=== PATIENT | female | born 1955 | race Caucasian/White ===

== ENCOUNTER 2016-07-20 03:17 | Emergency (ER) | payer OTHER ==
[2016-07-20 03:26] VITALS: BMI 35.5
[2016-07-20 03:30] VITALS: RESP 18; TEMP 98.5
--- NOTE | 2016-07-20 03:36 | ED PDOC ---
Arrival/HPI - General Chief Complaint: Headache Time Seen by Provider: 07/20/16 03:32 Historian: Patient, Family - History of Present Illness Narrative History of Present Illness (Text): 07/20/16 03:36 Aurelia Le is a 61 year old female, whose past medical history includes hypertension and diabetes, who presents to the Emergency department accompanied by relative complaining of headache. Patient states, via relative acting as photographic printer, she has been experiencing a posterior headache, described as throbbing, for the past 5 days. Patient reports she took Motrin at home with minimal relief. Patient denies any dizziness, focal neurological deficits, vision changes, fever, chills, chest pain, shortness of breath, nausea, vomiting , back pain, neck pain, or any other complaints. Time/Duration: < week (5 days) Symptom Onset: Gradual Symptom Course: Unchanged Quality: Throbbing Activities at Onset: Rest, Light Context: Home Past Medical History - Provider Review Nursing Documentation Reviewed: Yes - Reproductive Menopause: Yes - Cardiac Hx Cardiac Disorders: Yes Hx Hypertension: Yes - Pulmonary Hx Respiratory Disorders: No - Neurological Hx Neurological Disorder: No - HEENT Hx HEENT Disorder: No - Renal Hx Renal Disorder: No - Endocrine/Metabolic Hx Endocrine Disorders: Yes Hx Diabetes Mellitus Type 1: Yes - Hematological/Oncological Hx Blood Disorders: No - Integumentary Hx Dermatological Disorder: No - Musculoskeletal/Rheumatological Hx Musculoskeletal Disorders: No - Gastrointestinal Hx Gastrointestinal Disorders: No - Genitourinary/Gynecological Hx Genitourinary Disorders: No - Psychiatric Hx Psychophysiologic Disorder: No Hx Substance Use: No - Anesthesia Hx Anesthesia: No Family/Social History - Physician Review Nursing Documentation Reviewed: Yes Family/Social History: No Known Family HX Smoking Status: Never Smoked Hx Alcohol Use: No Hx Substance Use: No Allergies/Home Meds Allergies/Adverse Reactions: Allergies No Known Allergies Allergy (Verified 03/16/15 17:25) Home Medications: Home Meds Medication Instructions Recorded Confirmed Insulin Aspart, Recombinant 0 units SUBCUT DAILY 02/03/15 07/20/16 [Novolog] MetFORMIN [glucOPHAGE] 1,000 mg PO DAILY 07/20/16 07/20/16 Review of Systems - Physician Review All systems were reviewed & negative as marked: Yes - Review of Systems Constitutional: Normal. absent: Fevers Eyes: Normal ENT: Normal Respiratory: Normal. absent: SOB, Cough Cardiovascular: Normal. absent: Chest Pain Gastrointestinal: Normal. absent: Abdominal Pain, Diarrhea, Nausea, Vomiting Genitourinary Female: Normal. absent: Dysuria, Frequency, Hematuria, Urine Output Changes Musculoskeletal: Normal. absent: Back Pain, Neck Pain Skin: Normal. absent: Rash Neurological: Normal. absent: Headache, Dizziness Endocrine: Normal Hemo/Lymphatic: Normal Psychiatric: Normal Physical Exam Vital Signs Reviewed: Yes Vital Signs Temp Pulse Resp BP Pulse Ox 07/20/16 04:51 91 H 18 154/73 H 98 07/20/16 03:29 98.5 F 76 18 162/96 H 100 Temperature: Afebrile Blood Pressure: Normal Pulse: Regular Respiratory Rate: Normal Appearance: Positive for: Well-Appearing, Non-Toxic, Comfortable Pain Distress: None Mental Status: Positive for: Alert and Oriented X 3 - Systems Exam Head: Present: Atraumatic, Normocephalic Pupils: Present: PERRL Extroacular Muscles: Present: EOMI Conjunctiva: Present: Normal Mouth: Present: Moist Mucous Membranes Neck: Present: Normal Range of Motion Respiratory/Chest: Present: Clear to Auscultation, Good Air Exchange. No: Respiratory Distress, Accessory Muscle Use Cardiovascular: Present: Regular Rate and Rhythm, Normal S1, S2. No: Murmurs Abdomen: Present: Normal Bowel Sounds. No: Tenderness, Distention, Peritoneal Signs Back: Present: Normal Inspection Upper Extremity: Present: Normal Inspection. No: Cyanosis, Edema Lower Extremity: Present: Normal Inspection. No: Edema Neurological: Present: GCS=15, CN II-XII Intact, Speech Normal, Motor Func Grossly Intact, Normal Sensory Function, Normal Cerebellar Funct, Memory Normal Skin: Present: Warm, Dry, Normal Color. No: Rashes Psychiatric: Present: Alert, Oriented x 3, Normal Insight, Normal Concentration Medical Decision Making ED Course and Treatment: 07/20/16 03:36 Impression: 61 year old female complaining of headache x 5 days. Plan: -- CT Head w/o contrast -- Reglan -- Reassess and disposition Prior Visits: Notes and results from previous visits were reviewed. Progress Notes: 07/20/16 04:30 Reviewed radiology, CT Head shows: 1. No acute intracranial abnormality. 2. Incidental/non-acute findings are described above. 07/20/16 04:41 On re-evaluation, the patient feels better and is in no acute distress. I have discussed the results and plan with the patient, who expresses understanding. Patient in agreement with plan to discharged home. Patient is stable for discharge. Patient was instructed to follow up with physician/clinic in 1-2 days or return if symptoms worsen or new concerning symptoms arise. - RAD Interpretation Narrative RAD Interpretations (Text): CT Head shows: Brain: No intracranial hemorrhage. No mass. No definite edema. Ventricles: No hydrocephalus. Bones/joints: No acute fracture. Soft tissues: Unremarkable. Sinuses: RIGHT maxillary retention cyst. Mastoid air cells: Sclerosis of RIGHT mastoid, stable. Orbits: Unremarkable as visualized. IMPRESSION: 1. No acute intracranial abnormality. 2. Incidental/non-acute findings are described above. Radiology Orders: 07/20/16 03:40 HEAD W/O CONTRAST [CT] Stat Disability Benefits Specialist: Radiologist - Medication Orders Current Medication Orders: Discontinued Medications Metoclopramide HCl (Reglan) 10 mg IVP ONCE ONE Stop: 07/20/16 03:41 Last Admin: 07/20/16 03:49 Dose: 10 mg - Scribe Statement The provider has reviewed the documentation as recorded by the Scribe Florence Goode All medical record entries made by the Scribe were at my direction and personally dictated by me. I have reviewed the chart and agree that the record accurately reflects my personal performance of the history, physical exam, medical decision making, and the department course for this patient. I have also personally directed, reviewed, and agree with the discharge instructions and disposition. Disposition/Present on Arrival - Present on Arrival Any Indicators Present on Arrival: No History of DVT/PE: No History of Uncontrolled Diabetes: No Urinary Catheter: No History of Decub. Ulcer: No History Surgical Site Infection Following: None - Disposition Have Diagnosis and Disposition been Completed?: Yes Diagnosis: Headache, migraine Disposition: HOME/ ROUTINE Disposition Time: 04:40 Condition: GOOD Discharge Instructions (ExitCare): Migraine Headache (ED) Print Language: KOREAN Prescriptions: Acetaminophen/Butalbital/Caf [Fioricet] 1 tab PO QID PRN #10 tab PRN Reason: Headache Referrals: Elsie Andres MD [Primary Care Provider] - Follow up with primary
[2016-07-20] MEDS ORDERED: Apap-Butalbital-Caffeine 325-50-40mg Tab PO PRN (04:43)
[2016-07-20 04:51] VITALS: BP 154/73; PULSE 91; O2SAT 98
--- NOTE | 2016-07-20 08:01 | CT ---
PROCEDURE: CT HEAD WITHOUT CONTRAST. HISTORY: higgins COMPARISON: None available. TECHNIQUE: Axial computed tomography images were obtained through the head/brain without intravenous contrast. Radiation dose: Total exam DLP = 725.84 mGy-cm. This CT exam was performed using one or more of the following dose reduction techniques: Automated exposure control, adjustment of the mA and/or kV according to patient size, and/or use of iterative reconstruction technique. Somewhat limited evaluation due to artifact from patient motion. FINDINGS: HEMORRHAGE: No intracranial hemorrhage. BRAIN: No mass effect or edema.No CT evidence of acute territorial infarct. No atrophy or chronic microvascular ischemic changes. VENTRICLES: Unremarkable. No hydrocephalus. CALVARIUM: Unremarkable. PARANASAL SINUSES: Partially visualized, retention cyst or polyp in the right maxillary sinus. MASTOID AIR CELLS: Under pneumatization of the right mastoid air cells. Left mastoid air cells are unremarkable. OTHER FINDINGS: None. IMPRESSION: No CT evidence of acute intracranial hemorrhage or acute territorial infarct. Acute infarction may be CT occult within first 24 hours. If a focal deficit persists, consider followup CT or MRI for further evaluation. Please note that this report is in general agreement with the preliminary report provided by [facility].
== END 2016-07-20 04:53 | disposition home or self-care (01) ==
LOC: ED 03:17
DX: G43.909 Migraine, unspecified, not intractable, without status migrainosus (principal); E10.9 Type 1 diabetes mellitus without complications; I10 Essential (primary) hypertension
CPT/HCPCS: 70450; 96374; 99285; J2765

== ENCOUNTER 2017-01-06 20:07 | Emergency (ER) | payer OTHER ==
[2017-01-06 20:29] VITALS: BMI 32.1
[2017-01-06] MEDS ORDERED: Insulin Reg-MEDIUM-Coverage IV STA (20:55)
[2017-01-06] MEDS ORDERED: Oxycodone/Acetaminophen 5/325 mg Tab PO STA (20:55)
[2017-01-06] MEDS: Sodium Chloride 0.9% 1,000 ML IV STA ×2 (21:01→23:44)
[2017-01-06] MEDS ORDERED: Oxycodone/Acetaminophen 5/325 mg Tab ONE (21:03)
[2017-01-06] MEDS ORDERED: Insulin Regular 1 UNITS/0.01 ML ML ONE (21:04)
[2017-01-06 21:09] LABS: BASO # 0.03 K/mm3 (0.0-2.0); BASO % 0.4 % (0.0-3.0); EOS # 0.1 (0.0-0.7); EOS % 1.4 % (1.5-5.0); GRAN # 5.26 (1.4-6.5); GRAN % 68.9 % (50.0-68.0); HEMATOCRIT 33.6 % (36.0-48.0); LYMPH # 1.8 (1.2-3.4); LYMPH % 24.1 % (22.0-35.0); MEAN CELL VOLUME 88.9 fl (80.0-105.0); MEAN CORPUSCULAR HEMOGLOBIN 30.2 pg (25.0-35.0); MEAN CORPUSCULAR HGB CONC 33.9 g/dl (31.0-37.0); MEAN PLATELET VOLUME 10.1 fl (7.0-11.0); MONO # 0.4 (0.1-0.6); MONO % 5.2 % (1.0-6.0); WHITE BLOOD COUNT 7.6 10^3/ul (4.5-11.0)
[2017-01-06 21:17] LABS: ALB/GLOB RATIO 1.4 (1.1-1.8); ALKALINE PHOSPHATASE 171 U/L (38-126); ALT/SGPT 33 U/L (7-56); AST/SGOT 29 U/L (14-36); BILIRUBIN,TOTAL 0.7 mg/dL (0.2-1.3); BLOOD UREA NITROGEN 14 mg/dL (7-21); CALCIUM 9.5 mg/dL (8.4-10.5); CARBON DIOXIDE 27 mmol/L (21-33); CHLORIDE 102 mmol/L (98-107); GFR AFRICAN-AMERICAN > 60; POTASSIUM 3.9 mmol/L (3.6-5.0); SODIUM 141 mmol/L (132-148); TOTAL PROTEIN 7.4 g/dL (5.8-8.3)
[2017-01-06 21:40] LABS: GLUCOSE,RANDOM 391 mg/dL (70-110)
--- NOTE | 2017-01-06 21:58 | ED PDOC ---
Arrival/HPI <Al Badillo - Last Filed: 01/06/17 22:09> - General Historian: Patient <Katina Tai A - Last Filed: 01/07/17 01:18> - General Chief Complaint: Trauma Time Seen by Provider: 01/06/17 20:31 - History of Present Illness Narrative History of Present Illness (Text): 01/06/17 21:54 62yo female with PMHx of hypertension and Diabetes present with left sided hip pain that radiates to her leg s/p trauma. The daughter by the bedside states patient slipped on something that was on the floor, and fell . States she had no pain s/p the trauma. She was able to ambulate without pain and had no LOC. Left hip pain started few hours afterward. Did not take any medication. Denies hitting her head anywhere. Denies back pain, nausea, vomiting, focal weakness, any other complaint. PT 's FS was greater than 400 in triage. She notes that she did not take her hypoglycemic today. she denies polyuria/phagia/dipsia. (Katina Tai A) Past Medical History - Provider Review Nursing Documentation Reviewed: Yes - Infectious Disease Hx of Infectious Diseases: None - Cardiac Hx Cardiac Disorders: Yes Hx Hypertension: Yes - Pulmonary Hx Respiratory Disorders: No - Neurological Hx Neurological Disorder: No - HEENT Hx HEENT Disorder: No - Renal Hx Renal Disorder: No - Endocrine/Metabolic Hx Endocrine Disorders: Yes Hx Diabetes Mellitus Type 1: Yes - Hematological/Oncological Hx Blood Disorders: No - Integumentary Hx Dermatological Disorder: No - Musculoskeletal/Rheumatological Hx Musculoskeletal Disorders: No - Gastrointestinal Hx Gastrointestinal Disorders: No - Genitourinary/Gynecological Hx Genitourinary Disorders: No - Psychiatric Hx Psychophysiologic Disorder: No Hx Substance Use: No - Anesthesia Hx Anesthesia: No <Katina Tai A - Last Filed: 01/07/17 01:18> Family/Social History - Physician Review Nursing Documentation Reviewed: Yes Family/Social History: Unknown Family HX Smoking Status: Never Smoked Hx Alcohol Use: No Hx Substance Use: No <Katina Tai A - Last Filed: 01/07/17 01:18> Allergies/Home Meds <Al Badillo - Last Filed: 01/06/17 22:09> <Katina Tai A - Last Filed: 01/07/17 01:18> Allergies/Adverse Reactions: Allergies No Known Allergies Allergy (Verified 01/06/17 20:29) Home Medications: Home Meds Medication Instructions Recorded Confirmed Insulin Aspart, Recombinant 0 units SUBCUT DAILY 02/03/15 01/06/17 [Novolog] MetFORMIN [glucOPHAGE] 1,000 mg PO DAILY 07/20/16 01/06/17 Review of Systems - Physician Review All systems were reviewed & negative as marked: Yes - Review of Systems Constitutional: Normal Eyes: Normal ENT: Normal Respiratory: Normal Cardiovascular: Normal Gastrointestinal: Normal Genitourinary Female: Normal Musculoskeletal: Arthralgias (Left hip pain) Skin: Normal Neurological: Normal Endocrine: Normal Hemo/Lymphatic: Normal Psychiatric: Normal <Diru,Happiness A - Last Filed: 01/07/17 01:18> Physical Exam Vital Signs Reviewed: Yes Temperature: Afebrile Blood Pressure: Normal Pulse: Regular Respiratory Rate: Normal Appearance: Positive for: Well-Appearing, Non-Toxic, Comfortable Pain Distress: None Mental Status: Positive for: Alert and Oriented X 3 Finger Stick Blood Glucose: 456 - Systems Exam Head: Present: Atraumatic, Normocephalic Pupils: Present: PERRL Extroacular Muscles: Present: EOMI Conjunctiva: Present: Normal Mouth: Present: Moist Mucous Membranes Neck: Present: Normal Range of Motion Respiratory/Chest: Present: Clear to Auscultation, Good Air Exchange. No: Respiratory Distress, Accessory Muscle Use Cardiovascular: Present: Regular Rate and Rhythm, Normal S1, S2. No: Murmurs Abdomen: Present: Normal Bowel Sounds. No: Tenderness, Distention, Peritoneal Signs Back: Present: Normal Inspection Upper Extremity: Present: Normal Inspection. No: Cyanosis, Edema Lower Extremity: Present: NORMAL PULSES, Tenderness (Anterior/lateral left hip) , Neurovascularly Intact. No: Edema, Normal ROM (Limited on all planes secondary to pain), Swelling, Deformity Neurological: Present: GCS=15, CN II-XII Intact, Speech Normal Skin: Present: Warm, Dry, Normal Color. No: Rashes Psychiatric: Present: Alert, Oriented x 3, Normal Insight, Normal Concentration <Diru,Happiness A - Last Filed: 01/07/17 01:18> Vital Signs Temp Pulse Resp BP Pulse Ox 01/06/17 23:58 157/76 H 01/06/17 23:57 98.2 F 80 18 98 01/06/17 20:31 98.1 F 78 20 151/82 H 99 Medical Decision Making <Al Badillo - Last Filed: 01/06/17 22:09> <Katina Tai - Last Filed: 01/07/17 01:18> ED Course and Treatment: 01/06/17 23:52 PT presented for stated history. She had tenderness on her anterior/lateral left hip. The rest of the leg eas nontender. Her FS was greater than 400 in triage. She was hydrated and insulin given. On re evaluation she complained of persistent pain and hip CT was ordered. However when the nurse was about to send patient for CT, she declined CT. I spoke with the daughter and she states patient wants to go home. Repeat FS was 283 PT was ambulatory in ED with slight limp. She will be DC with Tylenol #3 and Naprosyn. Referred to her PMD/Ortho. Advised TRT ED for any new or worsening symptoms. (Katina Tai) - Lab Interpretations Lab Results: 01/06/17 20:45 01/06/17 20:45 Lab Results 01/06/17 20:45: Sodium 141, Potassium 3.9, Chloride 102, Carbon Dioxide 27, Anion Gap 16, BUN 14, Creatinine 0.5 L, Est GFR ( Amer) > 60, Est GFR ( Non-Af Amer) > 60, Random Glucose 391 H* D, Calcium 9.5, Total Bilirubin 0.7, AST 29, ALT 33, Alkaline Phosphatase 171 H, Total Protein 7.4, Albumin 4.3, Globulin 3.1, Albumin/Globulin Ratio 1.4 01/06/17 20:45: WBC 7.6, RBC 3.78, Hgb 11.4 L, Hct 33.6 L, MCV 88.9, MCH 30.2, MCHC 33.9, RDW 13.0, Plt Count 224, MPV 10.1, Gran % 68.9 H, Lymph % (Auto) 24.1 , [place] % (Auto) 5.2, Eos % (Auto) 1.4 L, Baso % (Auto) 0.4, Gran # 5.26, Lymph # 1.8, [place] # 0.4, Eos # 0.1, Baso # 0.03 - RAD Interpretation Radiology Orders: 01/06/17 20:32 ANKLE LEFT 3 VIEWS ROUTINE [RAD] Stat 01/06/17 20:53 Hip Bilateral [HIP MIN 3V W/ PELVIS KENNETH] [RAD] Stat - Medication Orders Current Medication Orders: Discontinued Medications Sodium Chloride (Sodium Chloride 0.9%) 1,000 mls @ 999 mls/hr IV .Q1H1M STA Stop: 01/06/17 21:54 Last Admin: 01/06/17 23:44 Dose: 999 mls/hr eMAR Start Stop Document 01/06/17 23:44 BONIFACIO (Rec: 01/06/17 23:45 BONIFACIO [id number]) Intravenous Solution Start Date 01/06/17 Start Time 21:55 End Date 01/06/17 End time 23:45 Total Infusion Time 110 Insulin Human Regular (Humulin R Med) 10 units IV ONCE STA PRN Reason: Protocol Stop: 01/06/17 20:56 Last Admin: 01/06/17 21:06 Dose: 10 units eMAR Start Stop Document 01/06/17 21:06 HP (Rec: 01/06/17 21:06 HP [id number]) Intravenous Solution Start Date 01/06/17 Start Time 21:06 End Date 01/06/17 End time 21:06 Total Infusion Time 0 MAR Blood Glucose Document 01/06/17 21:06 HP (Rec: 01/06/17 21:06 HP [id number]) Blood Glucose Finger Stick Blood Glucose (70-120) 456 Ketorolac Tromethamine (Toradol) 30 mg IVP STAT STA Stop: 01/06/17 22:44 Last Admin: 01/06/17 23:26 Dose: 30 mg MAR Pain Assessment Document 01/06/17 23:26 BONIFACIO (Rec: 01/06/17 23:27 BONIFACIO [id number]) Pain Reassessment Is this a pain reassessment? Yes Sleep Is patient sleeping during reassessment? No Location Left, Right or Bilateral Left Pain Location Body Site Hip IVP Administration Document 01/06/17 23:26 BONIFACIO (Rec: 01/06/17 23:27 BONIFACIO [id number]) Charges for Administration # of IVP Administrations 1 Oxycodone/Acetaminophen (Percocet 5/325 Mg Tab) 1 tab PO STAT STA Stop: 01/06/17 20:56 Last Admin: 01/06/17 21:06 Dose: 1 tab [facility] Pain Assessment Document 01/06/17 21:06 HP (Rec: 01/06/17 21:06 HP [id number]) Pain Reassessment Is this a pain reassessment? No - PA / ORTHOTIC/PROSTHETIC PRACTITIONER / Resident Statement / has reviewed & agrees with the documentation as recorded. <Al Badillo - Last Filed: 01/06/17 22:09> Disposition/Present on Arrival <Al Badillo - Last Filed: 01/06/17 22:09> - Present on Arrival Any Indicators Present on Arrival: No History of DVT/PE: No History of Uncontrolled Diabetes: No Urinary Catheter: No History of Decub. Ulcer: No History Surgical Site Infection Following: None - Disposition Have Diagnosis and Disposition been Completed?: Yes Disposition Time: 23:50 Patient Plan: Discharge <Katina Tai - Last Filed: 01/07/17 01:18> - Disposition Diagnosis: Leg pain, Hip pain, Hyperglycemia Disposition: HOME/ ROUTINE Condition: STABLE Discharge Instructions (ExitCare): Hip Pain (ED), Leg Pain (ED) Additional Instructions: Take medication as directed Follow up with your doctor/Orthopedist Return to ED for any new or worsening symptoms Prescriptions: Acetaminophen with Codeine [Tylenol with Codeine #3 Tablet] 1 each PO Q6 #6 tablet Naproxen [Naprosyn] 500 mg PO BID #20 tab Referrals: Elsie Andres MD [Primary Care Provider] - Follow up with primary Ry Servin MD [Staff Provider] - Follow up with primary Forms: [employer] (Arabic)
[2017-01-06 23:58] VITALS: BP 157/76; PULSE 80; RESP 18; TEMP 98.2; O2SAT 98
--- NOTE | 2017-01-07 10:18 | RAD ---
PROCEDURE: HISTORY: left hip pain COMPARISON: None TECHNIQUE: AP view of the pelvis and applicable frog leg views obtained. FINDINGS: Bilateral L4-5 and L5-S1 facet sclerotic arthrosis suggested. Distended bladder inferred. Bilateral superolateral hip joint space narrowing with superolateral bilateral acetabular spurring. No fracture lytic lesions here noted. Trace sclerotic margins each SI joint and pubic symphysis Left and right stool retention IMPRESSION: Bilateral osteoarthrosis. No fracture or dislocation. No lytic lesions appreciated. Arthrosis as above
--- NOTE | 2017-01-07 10:20 | RAD ---
PROCEDURE: Left Ankle Radiographs. HISTORY: ankle pain s/p trauma COMPARISON: None FINDINGS: BONES: Mild osteopenia No fracture. Inferior calcaneal spur. JOINTS: Normal. No osteoarthritis. Ankle mortise maintained. Talar dome intact SOFT TISSUES: . Few scattered phleboliths mild soft tissue swelling medial an lateral ankle OTHER FINDINGS: Shallow plantar arch. IMPRESSION: Mild soft tissue swelling. No fracture appreciated. Talar dome grossly intact.
== END 2017-01-06 23:55 | disposition home or self-care (01) ==
LOC: ED 20:07
DX: M25.552 Pain in left hip (principal); M79.605 Pain in left leg; E10.65 Type 1 diabetes mellitus with hyperglycemia; I10 Essential (primary) hypertension
CPT/HCPCS: 73522; 73610; 80053; 82948; 85025; 96361; 96374; 99285; J1885; J7040